=== PATIENT | female | born 1970 | race American Indian/Alaskan Native ===

== ENCOUNTER 2016-12-10 19:12 | Emergency (ER) | payer SELFPAY ==
[2016-12-10 20:27] LABS: Anion Gap 17 mmol/L; Basophils % (Auto) 0.4 % (0.0-1.8); Blood Urea Nitrogen 10 mg/dL (7-17); Calcium 8.9 mg/dL (8.4-10.2); Carbon Dioxide 27 mmol/L (22-30); Chloride 98.7 mmol/L (98-107); Glucose 107 mg/dL (65-100); Hematocrit 39.4 % (30.3-42.9); Hemoglobin 12.6 gm/dl (10.1-14.3); Mean Corpuscular HGB Conc 32 % (30-34); Mean Corpuscular Hemoglobin 28 pg (28-32); Mean Corpuscular Volume 87 fl (79-97); Platelet Count 388 K/mm3 (140-440); Potassium 3.8 mmol/L (3.6-5.0); Red Blood Count 4.54 M/mm3 (3.65-5.03); Sodium 139 mmol/L (137-145); White Blood Count 8.1 K/mm3 (4.5-11.0)
--- NOTE | 2016-12-10 20:42 | XRay Report ---
FINAL REPORT PROCEDURE: XR CHEST ROUTINE 2V TECHNIQUE: PA and lateral chest radiographs were obtained. CPT 74656 HISTORY: Chest pain. COMPARISON: No prior studies are available for comparison. FINDINGS: Heart: Mild cardiomegaly. Mediastinum/Vessels: Normal. Lungs/Pleural space: Normal. Bony thorax: Cervical spine hardware. Small multilevel osteophytes. Other: IMPRESSION: Mild cardiomegaly. No radiographic evidence of acute cardiopulmonary disease.
[2016-12-11] MEDS ORDERED: PEPCID PO ONE (00:41)
[2016-12-11] MEDS ORDERED: ALUM-MAG HYDROX-SIMETH 200-200-20MG/5ML PO ONE (00:41)
[2016-12-11] MEDS ORDERED: ZOFRAN ODT PO ONE (00:41)
[2016-12-11] MEDS ORDERED: LIDOCAINE VISCOUS 2% PO ONE (00:42)
--- NOTE | 2016-12-11 03:16 | Emergency Department Report ---
ED Chest Pain HPI - General Chief Complaint: Chest Pain Stated Complaint: CHEST PAIN/BP Time Seen by Provider: 12/11/16 00:31 Source: patient Mode of arrival: Ambulatory Limitations: No Limitations - History of Present Illness Initial Comments: Patient is 46-year-old female who presents with chest pain has been going on for a day. 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 While she was on the plane she had some mild chest pain in the middle of her chest that was a burning type pain it was a 4 out of 10 and nothing makes it better or worse. It does not radiate anywhere. She states that she wanted to come to the emergency department to get evaluated because she 's had a friend who from heart attack. She currently is not having any chest pain and has never had any family history of heart disease. Patient denies any leg swelling or any shortness of breath. Severity scale (0 -10): 0 - Related Data Previous Rx's Medication Instructions Recorded Last Taken Type Famotidine [Pepcid] 20 mg PO BID #20 tablet 12/11/16 Unknown Rx Allergies Allergy/AdvReac Type Severity Reaction Status Date / Time Sulfa (Sulfonamide Allergy Rash Verified 12/11/16 03:22 Antibiotics) Heart Score - HEART Score History: Slightly suspicious EKG: Normal Age: < 45 Risk factors: 1-2 risk factors Troponin: < normal limit HEART Score: 1 ED Review of Systems ROS: Stated complaint: CHEST PAIN/BP Other details as noted in HPI Constitutional: denies: chills, fever Eyes: denies: eye pain, eye discharge, vision change ENT: denies: ear pain, throat pain Respiratory: denies: cough, shortness of breath, wheezing Cardiovascular: chest pain. denies: palpitations Endocrine: no symptoms reported Gastrointestinal: denies: abdominal pain, nausea, diarrhea Genitourinary: denies: urgency, dysuria, discharge Musculoskeletal: denies: back pain, joint swelling, arthralgia Skin: denies: rash, lesions Neurological: denies: headache, weakness, paresthesias Psychiatric: denies: anxiety, depression Hematological/Lymphatic: denies: easy bleeding, easy bruising ED Past Medical Hx - Past Medical History Hx Hypertension: Yes Additional medical history: ICH - Surgical History Additional Surgical History: hysterectomy, spinal fusion - Social History Smoking Status: Never Smoker Substance Use Type: None - Medications Home Medications: Home Medications Medication Instructions Recorded Confirmed Last Taken Type Famotidine [Pepcid] 20 mg PO BID #20 tablet 12/11/16 Unknown Rx ED Physical Exam - General Limitations: No Limitations General appearance: alert, in no apparent distress - Head Head exam: Present: atraumatic, normocephalic - Eye Eye exam: Present: normal appearance - ENT ENT exam: Present: mucous membranes moist - Neck Neck exam: Present: normal inspection - Respiratory Respiratory exam: Present: normal lung sounds bilaterally. Absent: respiratory distress - Cardiovascular Cardiovascular Exam: Present: regular rate, normal rhythm. Absent: systolic murmur, diastolic murmur, rubs, gallop - GI/Abdominal GI/Abdominal exam: Present: soft, normal bowel sounds - Extremities Exam Extremities exam: Present: normal inspection - Back Exam Back exam: Present: normal inspection - Neurological Exam Neurological exam: Present: alert, oriented X3 - Psychiatric Psychiatric exam: Present: normal affect, normal mood - Skin Skin exam: Present: warm, dry, intact, normal color. Absent: rash ED Course Vital Signs 12/10/16 12/11/16 12/11/16 19:25 02:18 03:35 Temperature 98.8 F 98 F 98 F Pulse Rate 76 78 77 Respiratory 16 18 18 Rate Blood Pressure 164/94 Blood Pressure 161/83 159/80 [Left] O2 Sat by Pulse 100 97 Oximetry DELORIS score - Deloris Score Age > 65: (0) No Aspirin use within the Past 7 Days: (0) No 3 or more CAD Risk Factors: (0) No 2 or more Angina events in past 24 hrs: (0) No Known CAD with more than 50% Stenosis: (0) No Elevated Cardiac Markers: (0) No ST Deviation Greater than 0.5mm: (0) No DELORIS Score: 0 ED Medical Decision Making - Lab Data Result diagrams: 12/10/16 19:54 12/10/16 19:54 Lab Results 12/10/16 12/10/16 12/10/16 Range/Units 19:54 19:54 22:37 WBC 8.1 (4.5-11.0) K/mm3 RBC 4.54 (3.65-5.03) M/mm3 Hgb 12.6 (10.1-14.3) gm/dl Hct 39.4 (30.3-42.9) % MCV 87 (79-97) fl MCH 28 (28-32) pg MCHC 32 (30-34) % RDW 14.0 (13.2-15.2) % Plt Count 388 (140-440) K/mm3 Lymph % (Auto) 35.2 H (13.4-35.0) % Edmonson % (Auto) 6.6 (0.0-7.3) % Eos % (Auto) 2.0 (0.0-4.3) % Baso % (Auto) 0.4 (0.0-1.8) % Lymph # 2.9 (1.2-5.4) K/mm3 Edmonson # 0.5 (0.0-0.8) K/mm3 Eos # 0.2 (0.0-0.4) K/mm3 Baso # 0.0 (0.0-0.1) K/mm3 Seg Neutrophils % 55.8 (40.0-70.0) % Seg Neutrophils # 4.5 (1.8-7.7) K/mm3 Sodium 139 (137-145) mmol/L Potassium 3.8 (3.6-5.0) mmol/L Chloride 98.7 (98-107) mmol/L Carbon Dioxide 27 (22-30) mmol/L Anion Gap 17 mmol/L BUN 10 (7-17) mg/dL Creatinine 0.8 (0.7-1.2) mg/dL Estimated GFR > 60 ml/min BUN/Creatinine Ratio 12.50 % Glucose 107 H (65-100) mg/dL Calcium 8.9 (8.4-10.2) mg/dL Troponin T < 0.010 < 0.010 (0.00-0.029) ng/mL 12/11/16 Range/Units 01:39 WBC (4.5-11.0) K/mm3 RBC (3.65-5.03) M/mm3 Hgb (10.1-14.3) gm/dl Hct (30.3-42.9) % MCV (79-97) fl MCH (28-32) pg MCHC (30-34) % RDW (13.2-15.2) % Plt Count (140-440) K/mm3 Lymph % (Auto) (13.4-35.0) % Edmonson % (Auto) (0.0-7.3) % Eos % (Auto) (0.0-4.3) % Baso % (Auto) (0.0-1.8) % Lymph # (1.2-5.4) K/mm3 Edmonson # (0.0-0.8) K/mm3 Eos # (0.0-0.4) K/mm3 Baso # (0.0-0.1) K/mm3 Seg Neutrophils % (40.0-70.0) % Seg Neutrophils # (1.8-7.7) K/mm3 Sodium (137-145) mmol/L Potassium (3.6-5.0) mmol/L Chloride (98-107) mmol/L Carbon Dioxide (22-30) mmol/L Anion Gap mmol/L BUN (7-17) mg/dL Creatinine (0.7-1.2) mg/dL Estimated GFR ml/min BUN/Creatinine Ratio % Glucose (65-100) mg/dL Calcium (8.4-10.2) mg/dL Troponin T < 0.010 (0.00-0.029) ng/mL - EKG Data -: EKG Interpreted by Me - EKG Data 12/11/16 03:12 EKG shows normal sinus rhythm possible left atrial enlargement no ST segment elevations or T-wave abnormalities - Radiology Data Radiology results: report reviewed, image reviewed Chest x-ray: Shows mild cardiomegaly - Medical Decision Making Chief medical diagnosis: Non-STEMI Differential medical diagnosis: GERD, costochondritis, pull chest wall muscle, metabolic abnormality CHEST x-ray, CBC, troponin, CMP, EKG, oral analgesic medication Patient has had 3 negative troponins and states that her pain. Oral I gas. Also the patient home with Pepcid and to follow with her PCP. Critical care attestation.: If time is entered above; I have spent that time in minutes in the direct care of this critically ill patient, excluding procedure time. ED Disposition Clinical Impression: Chest pain in adult GERD (gastroesophageal reflux disease) Qualifiers: Esophagitis presence: without esophagitis Qualified Code(s): K21.9 - Gastro- esophageal reflux disease without esophagitis Disposition: TO HOME OR SELFCARE Is pt being admited?: No Does the pt Need Aspirin: No Condition: Stable Instructions: Chest Pain (ED), Esophageal Spasm (ED) Prescriptions: Famotidine [Pepcid] 20 mg PO BID #20 tablet Referrals: OSITO NULL MD [Staff Physician] - 3-5 Days Time of Disposition: 06:14
[2016-12-11] MEDS ORDERED: TYLENOL ONE (03:23)
[2016-12-11] MEDS ORDERED: TYLENOL PO ONE (03:33)
[2016-12-11 03:37] VITALS: BP 159/80
== END 2016-12-11 03:36 | disposition home or self-care (01) ==
LOC: ED 19:12
DX: K21.9 Gastro-esophageal reflux disease without esophagitis (principal); R07.9 Chest pain, unspecified; I10 Essential (primary) hypertension; Z90.710 Acquired absence of both cervix and uterus; Z88.2 Allergy status to sulfonamides
CPT/HCPCS: 36415; 71020; 80048; 84484; 85025; 93005; 93010; 99284; Q0162

== ENCOUNTER 2018-11-10 20:32 | Emergency (ER) | payer SELFPAY ==
[2018-11-10] MEDS ORDERED: IBUPROFEN PO ONE ×2 (21:14→21:17)
--- NOTE | 2018-11-10 21:14 | Event Note ---
ED Screening Note Date of service: 11/10/18 Time: 21:10 ED Screening Note: This is a 48 y.o. F. that presents to the ER with pain to left great toe. Patient states she was in [place] reaching for a curtain dodie when multiple fell landing on left foot. Reports pain to left great toe is worse with weight bearing. PMH HTN This initial assessment/diagnostic orders/clinical plan/treatment(s) is/are subject to change based on patients health status, clinical progression and re- assessment by fellow clinical providers in the ED. Further treatment and workup at subsequent clinical providers discretion. Patient/guardian urged not to elope from the ED as their condition may be serious if not clinically assessed and managed. Initial orders include: XR left toes
--- NOTE | 2018-11-10 22:05 | XRay Report ---
. LEFT TOES 3 VIEWS INDICATION / CLINICAL INFORMATION: 1st toe pain from injury, r/o fracture. COMPARISON: None available. FINDINGS: Radiopaque foreign body/calcifications are seen along the medial aspect of the first toe proximal pha lanx. No fracture or dislocation is seen within the left first toe. Signer Name: Joo Ayala MD Signed: 11/10/2018 10:00 PM Workstation Name: [id number]
[2018-11-10] MEDS ORDERED: TYLENOL PO ONE (22:54)
--- NOTE | 2018-11-10 23:48 | Emergency Department Report ---
ED Lower Extremity HPI - General Chief Complaint: Extremity Injury, Lower Stated Complaint: LEFT FOOT INJURY Time Seen by Provider: 11/10/18 21:09 Source: patient Mode of arrival: Ambulatory Limitations: No Limitations - History of Present Illness Initial Comments: Patient is a 48-year-old -[place] female with a history of hypertension who presents to the ED with complaint of acute onset persistence painful swollen left great toe after a picture frame at a store fell off the wall and landed on left foot hitting her left great toe about 3 hours ago. Patient states that the pain and the swelling is worse on that the pain is worse with ambulation. Patient denies any puncture wound or bleeding, numbness and tingling over the foot, fall, dizziness, chest pain or shortness of breath, or low back pain. MD Complaint: foot injury (left foot and left great toe) -: Sudden, hour(s) (3) Injury: Foot: Left (left), Toes: Left (great toe) Type of Injury: blunt Place: street/outdoors (Store) Severity: severe Severity scale (0 -10): 7 Improves With: NSAID Worsens With: weight bearing, movement, palpation Context: direct blow Associated Symptoms: swelling, able to partially bear weight. denies: snap/pop sensation, numbness, tingling - Related Data Previous Rx's Medication Instructions Recorded Last Taken Type Famotidine [Pepcid] 20 mg PO BID #20 tablet 12/11/16 Unknown Rx Acetaminophen/Codeine [Tylenol 1 tab PO Q6H PRN #15 tab 11/10/18 Unknown Rx /Codeine # 3 tab] Cyclobenzaprine [Flexeril] 10 mg PO Q8H PRN #21 tablet 11/10/18 Unknown Rx Ketorolac [Toradol] 10 mg PO Q8H PRN #20 tablet 11/10/18 Unknown Rx Lisinopril/Hydrochlorothiazide 1 tab PO QDAY #30 tab 11/10/18 Unknown Rx [Zestoretic 20-12.5 mg] Allergies Allergy/AdvReac Type Severity Reaction Status Date / Time Sulfa (Sulfonamide Allergy Rash Verified 12/11/16 03:22 Antibiotics) ED Review of Systems ROS: Stated complaint: LEFT FOOT INJURY Other details as noted in HPI Constitutional: denies: chills, fever Eyes: denies: eye pain, eye discharge, vision change ENT: denies: ear pain, throat pain Respiratory: denies: cough, shortness of breath, wheezing Cardiovascular: denies: chest pain, palpitations Endocrine: no symptoms reported Gastrointestinal: denies: abdominal pain, nausea, diarrhea Genitourinary: denies: urgency, dysuria, discharge Musculoskeletal: joint swelling (left foot and great toe), arthralgia (left foot and great toe). denies: back pain Skin: denies: rash, lesions Neurological: denies: headache, weakness, paresthesias Psychiatric: denies: anxiety, depression Hematological/Lymphatic: denies: easy bleeding, easy bruising ED Past Medical Hx - Past Medical History Previous Medical History?: Yes Hx Hypertension: Yes Additional medical history: ICH - Surgical History Past Surgical History?: Yes Additional Surgical History: hysterectomy, spinal fusion - Social History Smoking Status: Never Smoker - Medications Home Medications: Home Medications Medication Instructions Recorded Confirmed Last Taken Type Famotidine [Pepcid] 20 mg PO BID #20 tablet 12/11/16 Unknown Rx Acetaminophen/Codeine [Tylenol 1 tab PO Q6H PRN #15 tab 11/10/18 Unknown Rx /Codeine # 3 tab] Cyclobenzaprine [Flexeril] 10 mg PO Q8H PRN #21 tablet 11/10/18 Unknown Rx Ketorolac [Toradol] 10 mg PO Q8H PRN #20 tablet 11/10/18 Unknown Rx Lisinopril/Hydrochlorothiazide 1 tab PO QDAY #30 tab 11/10/18 Unknown Rx [Zestoretic 20-12.5 mg] ED Physical Exam - General Limitations: No Limitations General appearance: alert, in no apparent distress - Head Head exam: Present: atraumatic, normocephalic, normal inspection - Eye Eye exam: Present: normal appearance, PERRL, EOMI Pupils: Present: normal accommodation - ENT ENT exam: Present: normal exam, normal orophraynx, mucous membranes moist, TM's normal bilaterally, normal external ear exam - Neck Neck exam: Present: normal inspection, full ROM. Absent: tenderness, meningismus, lymphadenopathy - Respiratory Respiratory exam: Present: normal lung sounds bilaterally. Absent: respiratory distress, wheezes, rales, rhonchi, chest wall tenderness, accessory muscle use, decreased breath sounds - Cardiovascular Cardiovascular Exam: Present: regular rate, normal rhythm, normal heart sounds. Absent: systolic murmur, diastolic murmur, rubs, gallop - GI/Abdominal GI/Abdominal exam: Present: soft, normal bowel sounds. Absent: distended, tenderness, hyperactive bowel sounds, hypoactive bowel sounds, organomegaly - Rectal Rectal exam: Present: deferred - Extremities Exam Extremities exam: Present: normal inspection, full ROM, tenderness (Left great toe and left foot), normal capillary refill, joint swelling (left great toe) - Back Exam Back exam: Present: normal inspection, full ROM. Absent: tenderness, CVA tenderness (L), muscle spasm, paraspinal tenderness, vertebral tenderness - Neurological Exam Neurological exam: Present: alert, oriented X3, CN II-XII intact, normal gait, reflexes normal - Psychiatric Psychiatric exam: Present: normal affect, normal mood - Skin Skin exam: Present: warm, dry, intact, normal color. Absent: rash ED Course Vital Signs 11/10/18 11/10/18 20:39 21:17 Temperature 98.4 F Pulse Rate 93 H Respiratory 20 20 Rate Blood Pressure 178/111 O2 Sat by Pulse 97 Oximetry - Reevaluation(s) Reevaluation #1: 11/10/18 23:50 This is a 48-year-old morbidly obese female who presented to the ED with left great toe pain after a picture frame fell on her left foot 3 hours ago. In the ED patient is alert and oriented 3 and is not in any distress but pain, and is hypertensive and she admits that she is noncompliant with her hypertension medicine. Left foot x-ray shows no acute fracture or subluxation of the left great toe. There is however a calcification or radiopaque seen along the medial aspect of the first toe proximal phalanx. The physical exam had revealed no puncture wounds or abrasion to the left great toe. Therefore the calcifications may have been from a remote injury on the left great toe and not acute. Patient was treated for pain in the ED and the left foot was splinted with a Eleazar wrap and fitted with postop shoe. The left great toe was stephanie taped and the patient discharged home on crutches and pain medications, and advised to follow-up with her primary care physician in 5-7 days for reevaluation or return to the ED immediately if symptoms get worse. ED Lower Extremity MDM - Radiology Data Radiology results: report reviewed, image reviewed Left foot x-ray shows no acute fracture or subluxation of the left great toe. There is however a calcification or radiopaque seen along the medial aspect of the first toe proximal phalanx. - Medical Decision Making This is a 48-year-old morbidly obese female who presented to the ED with left great toe pain after a picture frame fell on her left foot 3 hours ago. In the ED patient is alert and oriented 3 and is not in any distress but pain, and is hypertensive and she admits that she is noncompliant with her hypertension medicine. Left foot x-ray shows no acute fracture or subluxation of the left great toe. There is however a calcification or radiopaque seen along the medial aspect of the first toe proximal phalanx. The physical exam had revealed no puncture wounds or abrasion to the left great toe. Therefore the calcifications may have been from a remote injury on the left great toe and not acute. Patient was treated for pain in the ED and the left foot was splinted with a Eleazar wrap and fitted with postop shoe. The left great toe was stephanie taped and the patient discharged home on crutches and pain medications, and advised to follow-up with her primary care physician in 5-7 days for reevaluation or return to the ED immediately if symptoms get worse. - Differential Diagnosis Left great toe fracture; Left foot contusion; Left great toe sprain Critical care attestation.: If time is entered above; I have spent that time in minutes in the direct care of this critically ill patient, excluding procedure time. ED Disposition Clinical Impression: Uncontrolled stage 2 hypertension Contusion of left great toe without damage to nail Qualifiers: Encounter type: initial encounter Qualified Code(s): S90.112A - Contusion of left great toe without damage to nail, initial encounter Sprain of left great toe Qualifiers: Encounter type: initial encounter Qualified Code(s): S93.502A - Unspecified sprain of left great toe, initial encounter Contusion of left foot including toes Qualifiers: Encounter type: initial encounter Qualified Code(s): S90.32XA - Contusion of left foot, initial encounter; S90.122A - Contusion of left lesser toe(s) without damage to nail, initial encounter Disposition: DC-01 TO HOME OR SELFCARE Is pt being admited?: No Does the pt Need Aspirin: No Condition: Stable Instructions: Foot Contusion (ED), Muscle Strain (ED), Hypertension (ED) Additional Instructions: Take medications with food, drink plenty of fluids and follow-up with your primary care physician in 5-7 days for reevaluation. Return to the ED immediately if symptoms get worse. Take your blood pressure medication as advised. Prescriptions: Cyclobenzaprine [Flexeril] 10 mg PO Q8H PRN #21 tablet PRN Reason: Muscle Spasm Ketorolac [Toradol] 10 mg PO Q8H PRN #20 tablet PRN Reason: Pain Acetaminophen/Codeine [Tylenol /Codeine # 3 tab] 1 tab PO Q6H PRN #15 tab PRN Reason: Pain , Severe (7-10) Lisinopril/Hydrochlorothiazide [Zestoretic 20-12.5 mg] 1 tab PO QDAY #30 tab Referrals: [facility] [Outside] - 3-5 Days Time of Disposition: 23:56 Print Language: KAZAKH
[2018-11-11 00:54] VITALS: BP 148/88
== END 2018-11-11 00:54 | disposition home or self-care (01) ==
LOC: ED 20:32
DX: S93.502A Unspecified sprain of left great toe, initial encounter (principal); S90.32XA Contusion of left foot, initial encounter; I10 Essential (primary) hypertension; Z90.710 Acquired absence of both cervix and uterus; Z79.899 Other long term (current) drug therapy; W01.198A Fall on same level from slipping, tripping and stumbling with subsequent striking against other object, initial encounter; Y93.89 Activity, other specified; Y92.89 Other specified places as the place of occurrence of the external cause; Y99.8 Other external cause status

== ENCOUNTER 2020-01-15 00:45 | Emergency (ER) | payer SELFPAY | END 2020-01-15 00:56 | disposition left against medical advice (07) | LOC: ED 00:45 | DX: Z53.21 Procedure and treatment not carried out due to patient leaving prior to being seen by health care provider (principal) ==